=== PATIENT | female | born 1990 | race Caucasian/White ===

== ENCOUNTER 2018-09-06 19:54 | Emergency (ER) | payer BC, OTHER ==
--- NOTE | 2018-09-06 20:24 | EDM.PDOC ---
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 Pt's last NMP was about 8 weeks ago. Pt does not remember the day of her LNMP. Pt has pain at her suprapubic area. 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 Pt had 3 miscarriages in the past. AB3. Pt never saw a OBGYN and the cause of her miscarriages was not determines. No trauma, No N/V/d no SOB no CP or any other acute medical issues. BP 131/71 RR 18 Pulse 100% Pulse 71 Temp 36.6 Onset Date: 09/06/18 Onset Time: 07:00 Duration: Hour(s): Location: Reports: Pelvis Quality: Reports: Ache, Burning, Same as Previous Episode Severity: Mild Improves with: Reports: Rest Worsens with: Reports: Movement Context: Reports: Other (miscarriging) Associated Symptoms: Reports: No Other Symptoms Treatments MARSHMALLOW MAKER: Reports: Acetaminophen lower abdomen Pain Score (Numeric/FACES): 8 - Related Data Allergies Allergy/AdvReac Type Severity Reaction Status Date / Time No Known Allergies Allergy Verified 09/06/18 20:01 Home Meds: Home Meds Nitrofurantoin 100 gm MC BID #20 powder 09/06/18 [Rx] [id number]/Iron Fumarate/FA/DSS [ 19 Tablet] 1 each PO DAILY 09/06/18 [ History] Past Medical History 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: , Spontaneous Other SENIOR SALES OPERATIONS MANAGER History: Psychiatric History: Reports: Depression Social & Family History - Tobacco Use Smoking Status *Q: Never Smoker Second Hand Smoke Exposure: No - Caffeine Use Caffeine Use: Reports: Coffee, Soda - Recreational Drug Use Recreational Drug Use: No ED ROS GENERAL - Review of Systems Review Of Systems: See Below Constitutional: Reports: No Symptoms HEENT: Reports: No Symptoms Respiratory: Reports: No Symptoms Cardiovascular: Reports: No Symptoms Endocrine: Reports: No Symptoms GI/Abdominal: Reports: No Symptoms : Reports: No Symptoms Musculoskeletal: Reports: No Symptoms Skin: Reports: No Symptoms Neurological: Reports: No Symptoms Psychiatric: Reports: No Symptoms Hematologic/Lymphatic: Reports: No Symptoms Immunologic: Reports: No Symptoms ED EXAM - Physical Exam Exam: See Below Exam Limited By: No Limitations General Appearance: Alert, WD/WN, Mild Distress, Moderate Distress Eye Exam: Bilateral Eye: Normal Inspection Ears: Normal External Exam Nose: Normal Inspection Throat/Mouth: Normal Inspection, Normal Lips, Normal Teeth, Normal Gums, Normal Voice, No Airway Compromise Head: Atraumatic, Normocephalic Neck: Normal Inspection, Supple, Non-Tender, Full Range of Motion Respiratory/Chest: No Respiratory Distress, Lungs Clear, Normal Breath Sounds, No Accessory Muscle Use Cardiovascular: Normal Peripheral Pulses, Regular Rate, Rhythm, No Edema, No Gallop, No JVD, No Murmur GI/Abdominal Exam: Normal Bowel Sounds, Soft, Non-Tender, No Organomegaly, No Distention, No Abnormal Bruit Rectal Exam: Deferred (Female) Exam: Normal Bimanual Exam, Normal External Exam, Vaginal Bleeding, Other (cervix open) Back Exam: Normal Inspection, Full Range of Motion Extremities: Normal Inspection, Normal Range of Motion, Non-Tender, No Pedal Edema, Normal Capillary Refill Neurological: Alert, Oriented, CN II-XII Intact, Normal Cognition, Normal Gait Psychiatric: Normal Affect, Normal Mood Skin Exam: Warm, Dry, Intact, Normal Color, No Rash Lymphatic: No Adenopathy Course - Vital Signs Text/Narrative:: 28 y.o.w.f came by herself to the ed because of vaginal bleed. Pt's last NMP was about 8 weeks ago. Pt does not remember the day of her LNMP. Pt has pain at her suprapubic area. 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 Pt had 3 miscarriages in the past. AB3. Pt never saw a OBGYN and the cause of her miscarriages was not determines. No trauma, No N/V/d no SOB no CP or any other acute medical issues. BP 131/71 RR 18 Pulse 100% Pulse 71 Temp 36.6 PE: WNWD W F with a miscarriage in progress. Imaging: Ultrasound is not available Labs: UA pos for UTI and hematuria(contaminatet vag blee) WBC 16.3 BMP: Cr 1.1, HCG was 7287 Impressioin: Possible Miscarriage, Vag bleed, UTI Tx: Tylenol Reexam: Pt was doing fine, will F/U in clinic Plan: D/C with instructions 12/04/2018 Called at 1.05 pm, left message Last Recorded V/S: Last Vital Signs Temp 36.3 C 09/06/18 22:01 Pulse 64 09/06/18 22:01 Resp 16 09/06/18 22:01 BP 117/69 09/06/18 22:01 Pulse Ox 100 09/06/18 22:01 - Orders/Labs/Meds Orders: Active Orders 24 hr Category Date Time Status Pelvic Exam, Set Up [RC] ASDIRECTED Care 09/06/18 20:24 Active CHLAMYDIA/GC AMPLIFICATION Stat Lab 09/06/18 20:20 Received CULTURE URINE [RM] Stat Lab 09/06/18 21:30 Ordered Labs: Laboratory Tests 09/06/18 09/06/18 09/06/18 Range/Units 20:20 20:20 20:20 WBC 16.9 H (4.5-12.0) X10-3/uL RBC 4.23 (3.23-5.20) x10(6)uL Hgb 12.9 (11.5-15.5) g/dL Hct 37.7 (30.0-51.3) % MCV 89.0 (80-96) fL MCH 30.6 (27.7-33.6) pg MCHC 34.4 (32.2-35.4) g/dL RDW 12.6 (11.5-15.5) % Plt Count 349 (125-369) X10(3)uL MPV 9.0 (7.4-10.4) fL Neut % (Auto) 69.0 (46-82) % Lymph % (Auto) 21.6 (13-37) % [place] % (Auto) 6.7 (4-12) % Eos % (Auto) 1 (1.0-5.0) % Baso % (Auto) 2 (0-2) % Neut # (Auto) 11.6 H (1.6-8.3) # Lymph # (Auto) 3.7 (0.6-5.0) # Stanton # (Auto) 1.1 (0.0-1.3) # Eos # (Auto) 0.2 (0.0-0.8) # Baso # (Auto) 0.3 H (0.0-0.2) # Sodium 140 (135-145) mmol/L Potassium 3.7 (3.5-5.3) mmol/L Chloride 104 (100-110) mmol/L Carbon Dioxide 25 (21-32) mmol/L BUN 15 (7-18) mg/dL Creatinine 1.1 H (0.55-1.02) mg/dL Est Cr Clr Drug Dosing 60.76 mL/min Estimated GFR (MDRD) 60 (>60) BUN/Creatinine Ratio 13.6 (9-20) Glucose 146 H (80-116) mg/dL Calcium 8.8 (8.6-10.2) mg/dL HCG, Quant 7287 (<5) mIU/mL Urine Color (YELLOW) Urine Appearance (CLEAR) Urine pH (5.0-6.5) Ur Specific [place] (1.010-1.025) Urine Protein (NEGATIVE) mg/dL Urine Glucose (UA) (NORMAL) mg/dL Urine Ketones (NEGATIVE) mg/dL Urine Occult Blood (NEGATIVE) Urine Nitrite (NEGATIVE) Urine Bilirubin (NEGATIVE) Urine Urobilinogen (NEGATIVE) mg/dL Ur Leukocyte Esterase (NEGATIVE) Urine RBC (0-5) Urine WBC (0-5) Ur Squamous Epith Cells (NS,R,O) Urine Bacteria (NS) 09/06/18 Range/Units 20:20 WBC (4.5-12.0) X10-3/uL RBC (3.23-5.20) x10(6)uL Hgb (11.5-15.5) g/dL Hct (30.0-51.3) % MCV (80-96) fL MCH (27.7-33.6) pg MCHC (32.2-35.4) g/dL RDW (11.5-15.5) % Plt Count (125-369) X10(3)uL MPV (7.4-10.4) fL Neut % (Auto) (46-82) % Lymph % (Auto) (13-37) % Stanton % (Auto) (4-12) % Eos % (Auto) (1.0-5.0) % Baso % (Auto) (0-2) % Neut # (Auto) (1.6-8.3) # Lymph # (Auto) (0.6-5.0) # Stanton # (Auto) (0.0-1.3) # Eos # (Auto) (0.0-0.8) # Baso # (Auto) (0.0-0.2) # Sodium (135-145) mmol/L Potassium (3.5-5.3) mmol/L Chloride (100-110) mmol/L Carbon Dioxide (21-32) mmol/L BUN (7-18) mg/dL Creatinine (0.55-1.02) mg/dL Est Cr Clr Drug Dosing mL/min Estimated GFR (MDRD) (>60) BUN/Creatinine Ratio (9-20) Glucose (80-116) mg/dL Calcium (8.6-10.2) mg/dL HCG, Quant (<5) mIU/mL Urine Color [place] (YELLOW) Urine Appearance Cloudy (CLEAR) Urine pH 6.0 (5.0-6.5) Ur Specific [place] 1.020 (1.010-1.025) Urine Protein Trace (NEGATIVE) mg/dL Urine Glucose (UA) Normal (NORMAL) mg/dL Urine Ketones Negative (NEGATIVE) mg/dL Urine Occult Blood Large H (NEGATIVE) Urine Nitrite Negative (NEGATIVE) Urine Bilirubin Negative (NEGATIVE) Urine Urobilinogen 1 H (NEGATIVE) mg/dL Ur Leukocyte Esterase Small H (NEGATIVE) Urine RBC >100 H (0-5) Urine WBC 5-10 H (0-5) Ur Squamous Epith Cells Occasional (NS,R,O) Urine Bacteria Few H (NS) Departure - Departure Time of Disposition: 21:45 Disposition: Home, Self-Care 01 Condition: Good Clinical Impression: Vaginal bleeding in , H/O miscarriage, currently , UTI ( urinary tract infection) - Discharge Information Prescriptions: Nitrofurantoin 100 gm MC BID #20 powder Instructions: Miscarriage, [id number], Urinary Tract Infection, Adult, Easy- to-Read Referrals: PCP,None [Primary Care Provider] - Forms: ED Department Discharge, ED Return to Work/School Form Additional Instructions: Please take Tylenol for pain. Please f/u with your OBGYN, please come back if your symptoms get worse acutely - My Orders Last 24 Hours: My Active Orders 09/06/18 20:20 CHLAMYDIA/GC AMPLIFICATION Stat 09/06/18 20:24 Pelvic Exam, Set Up [RC] ASDIRECTED 09/06/18 21:30 CULTURE URINE [RM] Stat - Assessment/Plan Last 24 Hours: My Active Orders 09/06/18 20:20 CHLAMYDIA/GC AMPLIFICATION Stat 09/06/18 20:24 Pelvic Exam, Set Up [RC] ASDIRECTED 09/06/18 21:30 CULTURE URINE [RM] Stat
[2018-09-10 03:10] LABS: CHLAMYDIA TRACHOMATIS, NAA Negative (Negative); NEISSERIA GONORRHOEAE, NAA Negative (Negative)
== END 2018-09-06 22:06 | disposition home or self-care (01) ==
LOC: FB.ED 19:54
DX: O20.8 Other hemorrhage in early pregnancy (principal); O23.41 Unspecified infection of urinary tract in pregnancy, first trimester; Z87.59 Personal history of other complications of pregnancy, childbirth and the puerperium; Z3A.08 8 weeks gestation of pregnancy
CPT/HCPCS: 36415; 80048; 81001; 84702; 85025; 87086; 87210; 87491; 87591; 99284